=== PATIENT | male | born 1975 | race African-American/Black ===

== ENCOUNTER 2021-03-17 02:56 | Emergency (ER) | payer MEDICAID, OTHER ==
[~2021-03-17] VITALS: Ht 177.8 cm; Wt 84.0 kg
[2021-03-17] MEDS ORDERED: BENZ1LOZ60 MT (05:27)
[2021-03-17 05:45] VITALS: BP 137/82
== END 2021-03-17 05:50 | disposition home or self-care (01) ==
LOC: ER 02:56
DX: J02.9 Acute pharyngitis, unspecified (principal)
CPT/HCPCS: 87070; 87426; 87430; 99283

== ENCOUNTER 2022-07-15 08:12 | Emergency (ER) | payer MEDICAID ==
[~2022-07-15] VITALS: Ht 177.8 cm; Wt 79.0 kg
[~2022-07-15 08:12] MED LIST: BENZ1LOZ73 MT
[2022-07-15] MEDS ORDERED: IBUPROFEN 400MG TABLET PO ONE (09:15)
[2022-07-15] MEDS ORDERED: METHOCARBAMOL 500MG TABLET PO ONE (09:15)
[2022-07-15 09:20] VITALS: BP 132/82
[2022-07-15] MEDS ORDERED: METH-653 MT (10:29)
[2022-07-15] MEDS ORDERED: IBUP-2028 MT (10:29)
== END 2022-07-15 11:04 | disposition home or self-care (01) ==
LOC: ER 08:12
DX: R07.81 Pleurodynia (principal); R07.89 Other chest pain; Z87.828 Personal history of other (healed) physical injury and trauma; V43.52XA Car driver injured in collision with other type car in traffic accident, initial encounter; Y93.89 Activity, other specified; Y92.488 Other paved roadways as the place of occurrence of the external cause
CPT/HCPCS: 71101; 93005; 99283

== ENCOUNTER 2024-03-16 08:54 | Emergency (ER) | payer MEDICAID, OTHER ==
[~2024-03-16] VITALS: Ht 177.8 cm; Wt 79.4 kg
[~2024-03-16 08:54] MED LIST changes: +IBUP-2028 MT; +METH-653 MT
[2024-03-16 09:12] VITALS: O2SAT 98
[2024-03-16] MEDS: DEXAMETHASONE 10 MG/ML VIAL PO ONE (09:30)
[2024-03-16] MEDS: IBUPROFEN 600MG TABLET PO ONE (09:30)
[2024-03-16] MEDS ORDERED: BENZ1LOZ73 MT (11:20)
[2024-03-16] MEDS ORDERED: IBUP-2029 MT (11:20)
[2024-03-16] MEDS ORDERED: AMOX-494 MT (11:26)
[2024-03-16 11:36] VITALS: BP 133/76; PULSE 74; RESP 16; TEMP 98.4
== END 2024-03-16 11:42 | disposition home or self-care (01) ==
LOC: ER 09:03
DX: J02.0 Streptococcal pharyngitis (principal); Z20.822 Contact with and (suspected) exposure to COVID-19; Z98.890 Other specified postprocedural states
CPT/HCPCS: 99283; 87426; 87430; J1100

== ENCOUNTER 2024-03-18 05:19 | Emergency (ER) | payer SELFPAY ==
[~2024-03-18] VITALS: Ht 180.3 cm; Wt 80.0 kg
[~2024-03-18 05:19] MED LIST changes: +AMOX-494 MT; +IBUP-2029 MT
[2024-03-18 05:32] VITALS: BP 111/76; PULSE 84; RESP 18; TEMP 97.7; O2SAT 99
[2024-03-18] MEDS ORDERED: BENZ200C52 MT (06:35)
[2024-03-18] MEDS ORDERED: GUAI200T5 MT (06:35)
== END 2024-03-18 09:03 | disposition home or self-care (01) ==
LOC: ER 05:19
DX: J06.9 Acute upper respiratory infection, unspecified (principal); R05.9 Cough, unspecified; Z79.899 Other long term (current) drug therapy
CPT/HCPCS: 99283

== ENCOUNTER 2025-01-03 08:49 | Emergency (ER) | payer SELFPAY ==
[~2025-01-03] VITALS: Ht 177.8 cm; Wt 79.0 kg
[~2025-01-03 08:49] MED LIST changes: +BENZ200C52 MT; +GUAI200T5 MT
[2025-01-03 08:57] VITALS: TEMP 36.8; O2SAT 99
[2025-01-03] MEDS ORDERED: TRIMO EACHEYE (10:37)
[2025-01-03] MEDS ORDERED: BENZ200C52 MT (10:37)
[2025-01-03 10:48] VITALS: BP 125/68; PULSE 80; RESP 18; O2SAT 100
== END 2025-01-03 10:50 | disposition home or self-care (01) ==
LOC: ER 08:49
DX: H10.9 Unspecified conjunctivitis (principal); J02.9 Acute pharyngitis, unspecified; F10.90 Alcohol use, unspecified, uncomplicated; Y90.9 Presence of alcohol in blood, level not specified
CPT/HCPCS: 99283

== ENCOUNTER 2025-04-11 12:27 | Emergency (ER) | payer SELFPAY ==
[~2025-04-11] VITALS: Ht 177.8 cm; Wt 70.0 kg
[~2025-04-11 12:27] MED LIST changes: +IBUP-1455 MT; -IBUP-2029 MT; +TRIMO EACHEYE
[2025-04-11 12:28] VITALS: O2SAT 99
[2025-04-11 12:41] VITALS: BP 120/66; PULSE 86; RESP 14; TEMP 36.9; O2SAT 100
== END 2025-04-11 12:58 | disposition home or self-care (01) ==
LOC: ER 12:27
DX: S61.511D Laceration without foreign body of right wrist, subsequent encounter (principal); Z79.899 Other long term (current) drug therapy; X58.XXXD Exposure to other specified factors, subsequent encounter
CPT/HCPCS: 99281